=== PATIENT | female | born 1955 | race Caucasian/White ===

== ENCOUNTER 2016-06-04 02:44 | Emergency (ER) | payer SELFPAY ==
[~2016-06-04] VITALS: Ht 154.9 cm; Wt 70.5 kg
[2016-06-04 02:50] VITALS: BP 161/86
[2016-06-04] MEDS ORDERED: TRAM50TA4 PO (02:58)
[2016-06-04] MEDS ORDERED: LOSA50TA37 PO (02:58)
[2016-06-04] MEDS ORDERED: ONDANSETRON HCL 4 MG TABLET PO ONE (03:15)
== END 2016-06-04 04:06 | disposition left against medical advice (07) ==
LOC: EMS 02:45
DX: R11.2 Nausea with vomiting, unspecified (principal); Z53.21 Procedure and treatment not carried out due to patient leaving prior to being seen by health care provider
CPT/HCPCS: Q0162